=== PATIENT | male | born 1990 | race Caucasian/White ===

== ENCOUNTER 2016-04-18 09:14 | Emergency (ER) | payer OTHER ==
[~2016-04-18] VITALS: Ht 180.3 cm; Wt 108.9 kg
--- NOTE | 2016-04-18 09:54 | ED THROAT/DENTAL COMPLAINT ---
History of Present Illness General Chief Complaint: Sore Throat, Dental Pain Stated Complaint: L SIDE ?INFECTION IN MOUTH Source: patient, old records Exam Limitations: no limitations Vital Signs & Intake/Output Vital Signs & Intake/Output Vital Signs Date Time Temp Pulse Resp B/P Pulse O2 O2 Flow FiO2 Ox Delivery Rate 04/18 0928 98.0 97 20 158/107 98 Room Air Allergies Coded Allergies: No Known Allergies (04/18/16) Reconcile Medications Amoxicillin/Potassium Clav (Augmentin 875-125 Tablet) 875 MG-125 MG TABLET 1 TAB PO BID DENTAL Triage Note: PT TO ED C/O INFECTION TO LEFT SIDE OF MOUTH. STARTED MONDAY, WORSE THIS AM WITH WAKING. DENIES FEVERS AT HOME, AFEBRILE NOW. LEFT SIDE OF MOUTH SWOLLEN, PT STATES HE HAS A CRACKED TOOTH ON BOTTOM LEFT, UNSURE IF INFECTION SPREAD TO THE GUM. Triage Nurses Notes Reviewed? yes Onset: Abrupt Duration: day(s): (1), constant Timing: recent history Injury Environment: home Severity: moderate Severity Numbers: 5 No Modifying Factors: none Associated Symptoms: DENIES HPI: 26-year-old male presents to emergency room complaining of left-sided facial swelling and pain since waking up this morning. He denies any fevers or chills. Patient states he has a history of a cracked molar on the left lower side for the past several years, denies similar episodes in the past. He took ibuprofen for his symptoms with improvement. He is not been on any recent antibiotics, nor has he seen a dentist about his symptoms. The patient denies any difficulty swallowing, no fever no chills no nausea no vomiting noted no other modifying factors or associated symptoms otherwise. Past History Travel History Traveled to [place] past 21 day No Medical History Any Pertinent Medical History? see below for history Cardiovascular: hypertension Surgical History Surgical History: none Psychosocial History What is your primary language Libyan Tobacco Use: Never used ETOH Use: occasional use Illicit Drug Use: denies illicit drug use Family History Hx Contributory? No Review of Systems Review of Systems Constitutional: Reports: see HPI. All Other Systems: Reviewed and Negative Comments Review of systems: See HPI, All other systems negative. Constitutional, no chills no fever, no malaise HEENT: No visual changes sore throat no congestion, Cardiovascular: No chest pain , no palpitation Skin, no jaundice no rashes, no change in skin Respiratory: No dyspnea no cough no sputum GI: No nausea no vomiting, no diarrhea, : No dysuria Muscle skeletal: No joint pain, no joint swelling, no back pain, no neck pain, Neurologic: No numbness, no headache Psych: No stress . Heme/endocrine: No bruising no bleeding Immunology: No lymphadenopathy, Physical Exam Physical Exam General Appearance: well developed/nourished, no apparent distress, alert, awake Mouth/Throat: dental tenderness Comments: Well-developed well-nourished patient in no apparent distress. Head/Face: Atraumatic, no maxillary/frontal sinus tenderness, moderate left- sided facial swelling, no overlying erythema and mild tenderness to palpation Eyes: PERRL, EOMI, no conjunctival injection Ear:External auditory canals clear, no erythema, no FB. Nose: atraumatic.Normal inspection: No bleeding, Throat: Moist mucous membranes.Pharynx normal. No pharyngeal erythema/exudate seen. No stridor/drooling or assymetry. No swelling or edema. No gingival abscess, dental tenderness poor dentition Neck: Supple, no lymphadenopathy, FROM Back: FROM, Nontender Cardiovascular: Regular rate and rhythms no murmurs rubs Respiratory: No respiratory distress. Patient speaking in full complete sentences. Breath sounds clear to auscultation bilaterally: NO W/R/R Extremities: full range of motion Neuro: Alert and oriented x3 Skin: Warm & dry;No appreciable rash on exposed skin Psych: Mood affect normal, normal memory normal judgment. Core Measures ACS in differential dx? No Severe Sepsis Present: No Septic Shock Present: No Progress Differential Diagnosis: carious tooth, epiglottitis, Ludwigs angina, odontogenic abscess, mari-tonsillar abscess, strep pharyngitis, tooth fracture, PAROTITIS, SIALDOLITHESIS Plan of Care: Discussed with patient need for close follow up with dental clinic list provided per scheduled for Augmentin provided he is declining anything else for pain when offered answer all his questions he feels comfortable plan they'll return with any concerns cleared for discharge Departure Departure Time of Disposition: 1033 Disposition: HOME OR SELF CARE Condition: Stable Clinical Impression Primary Impression: Dental abscess Referrals: PATIENT HAS NO PRIMARY CARE DR (PCP/Family) Additional Instructions: Augmentin as directed interchange Tylenol and ibuprofen for pain. Follow-up with dental clinic list june petty return to the emergency room with any concerns. This prescription was sent to your pharmacy Departure Forms: Customer Survey General Discharge Information Prescriptions: Current Visit Scripts Amoxicillin/Potassium Clav (Augmentin 875-125 Tablet) 1 TAB PO BID #20 TAB
[2016-04-18] MEDS ORDERED: AUGMENTIN 875-1 EACH PO (10:35)
== END 2016-04-18 10:41 ==
LOC: ERH 09:14
DX: K04.7 Periapical abscess without sinus (principal)